=== PATIENT | female | born 1995 ===

== ENCOUNTER 2024-05-18 07:01 | Outpatient (CLI) | payer BC, MEDICAID ==
[2024-05-18] VITALS (21 sets, daily range): BP systolic 82–127; BP diastolic 41–81; PULSE 57–115
== END 2024-05-18 23:59 | disposition home or self-care (01) ==
LOC: CARD DIAG 07:01
PROVIDERS: ATTEND Internal Medicine Interventional Cardiology
DX: R55 Syncope and collapse (principal)
CPT/HCPCS: 93660